=== PATIENT | male | born 1965 ===

== ENCOUNTER 2024-06-25 13:21 | Emergency (ER) | payer BC ==
[2024-06-25] MEDS ORDERED: Diphtheria,Pertussis(Acell),Tetanus Vaccine 0.5 ML Syringe ONE (13:55)
[2024-06-25] MEDS: Diphtheria,Pertussis(Acell),Tetanus Vaccine 0.5 ML Syringe IM ONE (14:00)
[2024-06-25] MEDS: Lidocaine 1% 5 ML VIAL INJECT ONE (14:00)
[2024-06-25] MEDS ORDERED: Bacitracin Oint 1 GM U/D Packet TOP ONE (14:16)
== END 2024-06-25 14:22 | disposition home or self-care (01) ==
LOC: DL.ED 13:21
DX: S69.91XA Unspecified injury of right wrist, hand and finger(s), initial encounter (principal); Z23 Encounter for immunization; E03.9 Hypothyroidism, unspecified; W45.8XXA Other foreign body or object entering through skin, initial encounter
CPT/HCPCS: 73140-F5; 90471; 90715; 99282; 99283-25; J3490